=== PATIENT | male | born 1950 | race Caucasian/White ===

== ENCOUNTER 2016-10-14 08:35 | Outpatient (CLI) | payer OTHER ==
[~2016-10-14 08:35] MED LIST: ALBUT; BENADRYL ALLERG25 M1 PO; DULERA1 AR1 IH; MOTRIN; MOTRIN800 MG PO; PROVENTIL2.5 MG/3 M INH
== END 2016-10-14 22:00 | disposition home or self-care (01) ==
LOC: MLB 08:35
PROVIDERS: ATTEND Internal Medicine Geriatric Medicine
DX: Z00.00 Encounter for general adult medical examination without abnormal findings (principal)

== ENCOUNTER 2017-01-17 05:55 | Emergency (ER) | payer OTHER ==
[~2017-01-17] VITALS: Ht 162.6 cm; Wt 83.5 kg
[~2017-01-17 05:55] MED LIST changes: -ALBUT; -BENADRYL ALLERG25 M1 PO; -DULERA1 AR1 IH; +FORM1 IH; -MOTRIN; -MOTRIN800 MG PO; -PROVENTIL2.5 MG/3 M INH
[2017-01-17 06:01] VITALS: BP 123/53
--- NOTE | 2017-01-17 06:10 | NUR ---
PT TAKEN TO BED 4
--- NOTE | 2017-01-17 06:20 | NUR ---
Dr. Aleman evaluating patient at bedside.
[2017-01-17] MEDS ORDERED: predniSONE 20 MG TAB PO ONE (06:25)
[2017-01-17] MEDS ORDERED: ALBUTEROL SULFATE/IPRATROPIU 3 ML SOL IH ONE (06:25)
[2017-01-17] MEDS ORDERED: ALBUTEROL 0.083% 2.5 MG/3 ML NEBU INH ONE (06:25)
--- NOTE | 2017-01-17 06:32 | NUR ---
PT MOVED TO OVERFLOW
--- NOTE | 2017-01-17 06:38 | NUR ---
RT AT BEDSIDE ADMINISTERING BREATHING TREATMENT, PATIENT TOLERATED WELL.
[2017-01-17 07:03] VITALS: BP 123/53
--- NOTE | 2017-01-17 07:03 | NUR ---
Patient discharged with v/s stable. Written and verbal after care instructions given and explained. Patient alert, oriented and verbalized understanding of instructions. Ambulatory with steady gait. All questions addressed prior to discharge. ID band removed. Patient advised to follow up with PMD. Rx of ALBUTEROL, PREDNOSONE given. Patient educated on indication of medication including possible reaction and side effects. Opportunity to ask questions provided and answered.
== END 2017-01-17 07:03 | disposition home or self-care (01) ==
LOC: MED 05:55
DX: J45.901 Unspecified asthma with (acute) exacerbation (principal); J45.909 Unspecified asthma, uncomplicated; Z90.49 Acquired absence of other specified parts of digestive tract; Z79.899 Other long term (current) drug therapy
CPT/HCPCS: 94640; 99283; J7512; J7613; J7620

== ENCOUNTER 2017-10-27 06:01 | Emergency (ER) | payer OTHER ==
[~2017-10-27] VITALS: Ht 167.6 cm; Wt 87.2 kg
[2017-10-27 06:01] VITALS: BP 126/71
--- NOTE | 2017-10-27 06:10 | NUR ---
pt ambulated to bed #3.
--- NOTE | 2017-10-27 06:11 | NUR ---
PATIENT PRESENTS TO ED WITH allergies, runny nose, and dyspnea. Dr Pate at bedside evaluating Pt. PtDENIES N/V/D; SKIN IS PINK/WARM/DRY; AAOX4 WITH EVEN AND STEADY GAIT; LUNGS CLEAR BL; HR EVEN AND REGULAR; PT DENIES ANY FEVER, CP, OR COUGH AT THIS TIME; PATIENT STATES PAIN OF 0/10 AT THIS TIME; VSS; PATIENT POSITIONED FOR COMFORT; HOB ELEVATED; BEDRAILS UP X2; BED DOWN. ER MD MADE AWARE OF PT STATUS. CONTINUE TO MONITOR.
[2017-10-27 06:31] VITALS: BP 126/71
--- NOTE | 2017-10-27 06:31 | NUR ---
Patient discharged with v/s stable. Written and verbal after care instructions given and explained. Patient alert, oriented and verbalized understanding of instructions. Ambulatory with steady gait. All questions addressed prior to discharge. ID band removed. Patient advised to follow up with PMD. Rx of ZYRTEC, FLONASE, ALAWAY OPTH OINT given. Patient educated on indication of medication including possible reaction and side effects. Opportunity to ask questions provided and answered.
== END 2017-10-27 06:31 | disposition home or self-care (01) ==
LOC: MED 06:01
DX: J30.2 Other seasonal allergic rhinitis (principal); J45.909 Unspecified asthma, uncomplicated
CPT/HCPCS: 99283

== ENCOUNTER 2018-01-28 20:45 | Emergency (ER) | payer OTHER ==
[~2018-01-28] VITALS: Ht 167.6 cm; Wt 86.2 kg
[2018-01-28 20:47] VITALS: BP 111/75
[2018-01-28] MEDS: predniSONE 20 MG TAB PO ONE (22:25)
[2018-01-28 22:39] VITALS: BP 112/72
== END 2018-01-28 22:39 | disposition home or self-care (01) ==
LOC: MED 20:45
DX: J00 Acute nasopharyngitis [common cold] (principal); Z88.1 Allergy status to other antibiotic agents; Z90.49 Acquired absence of other specified parts of digestive tract
CPT/HCPCS: 99283; J7512

== ENCOUNTER 2019-02-23 13:18 | Emergency (ER) | payer OTHER ==
[~2019-02-23] VITALS: Ht 167.6 cm; Wt 85.7 kg
[2019-02-23 13:29] VITALS: BP 139/90
--- NOTE | 2019-02-23 14:03 | NUR ---
[place]. JOINT SEALER WAS BEDSIDE TO EXAMINE PT.
[2019-02-23] MEDS ORDERED: IPRATROPIUM 0.02% 0.5 MG/2.5 ML NEBU INH ONE (14:10)
[2019-02-23] MEDS ORDERED: ALBUTEROL 0.083% 2.5 MG/3 ML NEBU INH ONE (14:10)
[2019-02-23] MEDS ORDERED: predniSONE 20 MG TAB PO ONE (14:10)
--- NOTE | 2019-02-23 14:22 | NUR ---
MEDICATED PT WITH PREDNISONE PO. RT WAS BEDSIDE TO DO BREATHING TX.
--- NOTE | 2019-02-23 14:22 | NUR ---
Breathing treatment administered at bedside by respiratory therapist.
--- NOTE | 2019-02-23 14:34 | NUR ---
DR HUERTA AT BEDSIDE
[2019-02-23] MEDS ORDERED: ALBUTEROL SULFATE/IPRATROPIU 3 ML SOL IH ONE (15:05)
--- NOTE | 2019-02-23 15:40 | NUR ---
Patient discharged with v/s stable. Written and verbal after care instructions given and explained. Patient alert, oriented and verbalized understanding of instructions. Ambulatory with steady gait. All questions addressed prior to discharge. ID band removed. Patient advised to follow up with PMD. Rx of PREDNISONE, CALRITIN, ALBUTEROL, FLONASE given. Patient educated on indication of medication including possible reaction and side effects. Opportunity to ask questions provided and answered.
[2019-02-23 15:41] VITALS: BP 133/82
== END 2019-02-23 15:40 | disposition home or self-care (01) ==
LOC: MED 13:18
DX: J45.901 Unspecified asthma with (acute) exacerbation (principal); J30.9 Allergic rhinitis, unspecified; Z88.1 Allergy status to other antibiotic agents
CPT/HCPCS: 94640; 99284; J7512; J7613; J7620; J7644

== ENCOUNTER 2020-03-22 05:53 | Emergency (ER) | payer OTHER ==
[~2020-03-22] VITALS: Ht 167.6 cm; Wt 89.8 kg
[2020-03-22 06:00] VITALS: BP 134/68
--- NOTE | 2020-03-22 06:07 | NUR ---
PT AMBULATED TO ER BED 7 W/ STEADY GAIT.
--- NOTE | 2020-03-22 06:17 | NUR ---
70 Y/O MALE BIB SELF RECOMMENDED BY HIS PCP D/T "FELT LIKE MY HEAD WAS HIT BY A TREE AND A SUDDEN JOLT OF MY BODY". PT WAS A&O X4, CALM AND PLEASANT. PERRLA, BRISK 3MM, VERABLIZED HAVING "ACHING" PAIN AND DISCOMFORT 7/10 IN BACK OF THE NECK. PT WAS ABLE TO PERFORM FULL ROM OF THE NECK. DENIED HAVING ANY N/V/D. NO SENSITIVITY TO LIGHT. HAND [employer]ER WAS STRONG BILATERALLY. SECONDARY C/O WORSENING WHEEZING X 1 MONTH AGO. RESPIRATIONS EVEN AND UNLABORED. WHEEZING WAS NOTED ON INSPIRATION AND EXPIRATION THROUGHT THE LUNGS BILATERALLY A/P. NO C/O FEELING SOB AT THIS TIME. BED LOCKED AND PLACED IN LOWEST POSITION. MEDHX: ASTHMA ALLERGIES: PENICILLIN/AMOXICILLIN
--- NOTE | 2020-03-22 06:19 | NUR ---
ERMD AT BEDSIDE FOR MEDICAL EVALUATION.
[2020-03-22] MEDS ORDERED: ALBUTEROL SULFATE/IPRATROPIU 3 ML SOL IH ONE (06:25)
[2020-03-22] MEDS ORDERED: methylPREDNISolone SS 125 MG/2 ML VIAL IM ONE (06:25)
--- NOTE | 2020-03-22 06:41 | NUR ---
PT TAKEN BY X-RAY TECH VIA W/C FOR CT.
--- NOTE | 2020-03-22 06:45 | NUR ---
RT CALLED FOR BREATHING TX.
--- NOTE | 2020-03-22 06:57 | NUR ---
Respiratory Therapist at bedside for respiratory intervention.
--- NOTE | 2020-03-22 07:08 | NUR ---
ENDORSED PT STATUS TO TONY RN FOR CONTINUITY OF CARE.
[2020-03-22] MEDS ORDERED: ALBUTEROL 0.083% 2.5 MG/3 ML NEBU INH ONE (07:25)
--- NOTE | 2020-03-22 07:30 | NUR ---
RT AT BEDSIDE, PT CONNECTED TO [facility] ERP ARCHITECT
--- NOTE | 2020-03-22 08:06 | NUR ---
PT STATES THAT HE IS FEELING BETTER AND HIS CHEST IS NOT FEELING TIGHT. NO WHEEZING AUSCULTATED. VSS.
--- NOTE | 2020-03-22 08:30 | NUR ---
Dr. Davidson is reevaluating the patient at bedside.
[2020-03-22 08:40] VITALS: BP 127/65
--- NOTE | 2020-03-22 08:41 | NUR ---
Patient discharged with v/s stable. Written and verbal after care instructions given and explained. Patient alert, oriented and verbalized understanding of instructions. Ambulatory with steady gait. All questions addressed prior to discharge. ID band removed. Patient advised to follow up with PMD. Rx of azithromycin, albuterol, microelite compressor nebulizer, and prednisone given. Patient educated on indication of medication including possible reaction and side effects. Opportunity to ask questions provided and answered.
== END 2020-03-22 08:41 | disposition home or self-care (01) ==
LOC: MED 05:53
DX: J45.909 Unspecified asthma, uncomplicated (principal); R51.9 Headache, unspecified; R03.0 Elevated blood-pressure reading, without diagnosis of hypertension; Z88.1 Allergy status to other antibiotic agents; Z90.49 Acquired absence of other specified parts of digestive tract
CPT/HCPCS: 70450; 71045; 72125; 94640; 96372; 99285; J2930; J7613; Q0092

== ENCOUNTER 2020-09-18 06:04 | Emergency (ER) | payer OTHER ==
[~2020-09-18] VITALS: Ht 167.6 cm; Wt 81.6 kg
[2020-09-18 06:09] VITALS: BP 156/73
--- NOTE | 2020-09-18 06:09 | NUR ---
TO BED AMBULATORY
--- NOTE | 2020-09-18 06:15 | NUR ---
SEE PATIENT ASSESSMENT FOR MORE INFORMATION.
--- NOTE | 2020-09-18 06:15 | NUR ---
Dr. Aleman examining patient.
[2020-09-18] MEDS: KETOROLAC 60 MG/2 ML VIAL IM ONE (06:27)
[2020-09-18] MEDS ORDERED: IBUP-2213 PO (06:32)
[2020-09-18] MEDS ORDERED: ACET-8386 PO (06:32)
[2020-09-18 06:46] VITALS: BP 156/73
--- NOTE | 2020-09-18 06:46 | NUR ---
Patient discharged with v/s stable. Written and verbal after care instructions given and explained. Patient alert, oriented and verbalized understanding of instructions. Ambulatory with steady gait. All questions addressed prior to discharge. ID band removed. Patient advised to follow up with PMD. Rx of IBUPROFEN, NORCO given. Patient educated on indication of medication including possible reaction and side effects. Opportunity to ask questions provided and answered.
== END 2020-09-18 06:46 | disposition home or self-care (01) ==
LOC: MED 06:04
DX: M54.2 Cervicalgia (principal); J45.909 Unspecified asthma, uncomplicated; Z90.49 Acquired absence of other specified parts of digestive tract; Z88.0 Allergy status to penicillin
CPT/HCPCS: 96372; 99283; J1885

== ENCOUNTER 2021-01-15 06:00 | Emergency (ER) | payer OTHER ==
[~2021-01-15] VITALS: Ht 177.8 cm; Wt 81.6 kg
[2021-01-15 06:00] VITALS: BP 122/96
[~2021-01-15 06:00] MED LIST changes: +ACET-8386 PO; -FORM1 IH; +IBUP-2213 PO
--- NOTE | 2021-01-15 06:00 | NUR ---
TO BED AMBULATORY
[2021-01-15] MEDS ORDERED: ALBUTEROL HFA MDI 90 MCG/ACTUATION 8 GM INH ONE (06:15)
[2021-01-15] MEDS ORDERED: predniSONE 20 MG TAB PO ONE (06:15)
--- NOTE | 2021-01-15 06:15 | NUR ---
70 YO/M BIB SELF W C/O WHEEZING, SOB, AND RED WATERY EYES SINCE FRIDAY THAT WORSENED TODAY AT 0300. PATIENT DENIES PAIN OR CHEST PAIN. PATIENT O2 SATURATION 94%, BREATHING EVEN AND UNLABORED. WHEEZING AUSCULTATED THROUGHOUT LUNG RAO INSPIRATORY AND EXPIRATORY. PATIENT SPEAKING IN FULL SENTENCES. PATIENT REPORTS USING INHALOR LAST USE LAST NIGHT W MILD RELIEF. PATIENT SITTING IN BED LOCKED IN LOWEST POSITION. 74HR, 94% O2 SAT. NAD NOTED, WILL CONTINUE TO MONITOR. PMH:ASTHMA ALLERGIES: PENICILLINS, AMOXICILLIN, DUST, "LIQOUR YEAST"
--- NOTE | 2021-01-15 06:20 | NUR ---
BUS MATRON AT BEDSIDE FOR PATIENT TREATMENT.
[2021-01-15] MEDS ORDERED: ALBU0.0912 IH (06:26)
[2021-01-15] MEDS ORDERED: PRED20TA5 PO (06:26)
[2021-01-15] MEDS ORDERED: KETO5SOL OP (06:26)
--- NOTE | 2021-01-15 06:45 | NUR ---
PATIENT REPORTS RELIEF OF WHEEZING AND SOB S/P ALBUTEROL INH AND PREDNISONE MEDICATIONS. LUNG SOUNDS CLEAR THROUGHOUT, BREATHING EVEN AND UNLABORED, 96 O2 SATURATION ON ROOM AIR, 73HR.
[2021-01-15 06:55] VITALS: BP 122/96
--- NOTE | 2021-01-15 06:55 | NUR ---
Patient discharged with v/s stable. Written and verbal after care instructions given and explained. Patient alert, oriented and verbalized understanding of instructions. Ambulatory with steady gait. All questions addressed prior to discharge. ID band removed. Patient advised to follow up with PMD. Rx of ALBUTEROL SULFATE, KETOROLAC TROMETHAMINE, PREDNISONE given. Patient educated on indication of medication including possible reaction and side effects. Opportunity to ask questions provided and answered.
== END 2021-01-15 06:55 | disposition home or self-care (01) ==
LOC: MED 06:00
DX: J45.901 Unspecified asthma with (acute) exacerbation (principal); H10.13 Acute atopic conjunctivitis, bilateral; R03.0 Elevated blood-pressure reading, without diagnosis of hypertension; J45.909 Unspecified asthma, uncomplicated; Z88.0 Allergy status to penicillin; Z88.1 Allergy status to other antibiotic agents
CPT/HCPCS: 94664; 99283; J7512

== ENCOUNTER 2021-11-02 06:10 | Emergency (ER) | payer OTHER ==
[~2021-11-02] VITALS: Ht 167.6 cm; Wt 83.9 kg
[~2021-11-02 06:10] MED LIST changes: +ALBU0.0912 IH; +KETO5SOL OP; +PRED20TA5 PO
[2021-11-02 06:12] VITALS: BP 138/59
--- NOTE | 2021-11-02 06:19 | NUR ---
TO LOBBY RONAK SAHU
[2021-11-02] MEDS ORDERED: ONDANSETRON 4 MG/2 ML VIAL IVP ONE (07:05)
[2021-11-02] MEDS ORDERED: NACL 0.9% 500 ML IV ONE (07:05)
--- NOTE | 2021-11-02 07:36 | NUR ---
71 y/o male, c/o body pain, chills, suarez, subjective fever, loss of appetite for 2 days, s/s worsened today. skin is pink/warm/dry. a&o x4 with even and steady gait. lungs clear bl, heart rate even and regular. pt denies dysuria, hematuria, urinary frequency or retention, or anyone sick in the household with the same symptoms. pt denies any cp, sob, or cough at this time. pt states pain is 6/10 at this time. patient positioned for comfort. hob elevated. bed down. ermd made aware of pt. pmh: asthma allergy: penicillin, amoxicillin med: denies
--- NOTE | 2021-11-02 07:40 | NUR ---
Blood work, urine, RONNY and Flu specimens obtained, handed to CPT Rusty at bedside.
[2021-11-02 08:18] LABS: BASOPHILS # (AUTO) 0.1 K/uL (0.00-0.22); BASOPHILS % (AUTO) 1.1 % (0.0-2.0); EOSINOPHILS # (AUTO) 0.1 K/uL (0-0.4); EOSINOPHILS % (AUTO) 0.5 % (0.0-4.0); HEMATOCRIT 46.9 % (36-52); HEMOGLOBIN 15.3 g/dL (12.0-18.0); LYMPHOCYTES % (AUTO) 8.5 % (20.5-51.1); MEAN CORPUSCULAR HEMOGLOBIN 29 pg (27-31); MEAN CORPUSCULAR HGB CONC 33 g/dL (33-37); MEAN CORPUSCULAR VOLUME 87.9 fL (80-94); MONOCYTES # (AUTO) 1.1 K/uL (0.8-1.0); MONOCYTES % (AUTO) 9.3 % (1.7-9.3); NEUTROPHILS # (AUTO) 9.3 K/uL (1.8-7.7); NEUTROPHILS % (AUTO) 80.6 % (42.2-75.2); PLATELET COUNT (AUTO) 250 K/uL (140-450); RED BLOOD CELL COUNT(AUTO) 5.33 MIL/uL (4.20-6.10); RED CELL DISTRIBUTION WIDTH 14.5 % (11.6-13.7); WHITE BLOOD COUNT (AUTO) 11.6 K/uL (4.8-10.8)
[2021-11-02 08:36] LABS: APPEARANCE,URINE CLEAR (CLEAR); BILIRUBIN,URINE NEGATIVE (NEGATIVE); BLOOD, URINE TRACE-I (NEGATIVE); COLOR,URINE YELLOW (YELLOW); LEUKOCYTE ESTERASE ,URINE NEGATIVE (NEGATIVE); NITRITE, URINE NEGATIVE (NEGATIVE); PH,URINE 7.5 (5.0-9.0); UGLUCOSE NEGATIVE (NEGATIVE)
[2021-11-02 09:11] LABS: ALBUMIN 4.1 g/dL (3.4-5.0); ANION GAP 13.2 (8-16); ASPARTATE AMINOTRANSFERASE 24 U/L (15-37); CARBON DIOXIDE 25.6 mmol/L (21-32); CHLORIDE 98 mmol/L (98-107); CREATININE 1.2 mg/dL (0.6-1.3); GFR ARICAN-AMERICAN 77 mL/min (>90); GLUCOSE 110 mg/dL (74-106); POTASSIUM 3.8 mmol/L (3.5-5.1); SODIUM SERUM 133 mmol/L (136-145); TOTAL BILIRUBIN 0.7 mg/dL (0.0-1.0); UREA NITROGEN, BLOOD 10 mg/dL (7-18)
--- NOTE | 2021-11-02 09:51 | NUR ---
Oral Temperature is at 99.9 F. Cooling Measures Implemented.
[2021-11-02] MEDS ORDERED: NIRM1TAB PO (10:04)
--- NOTE | 2021-11-02 10:20 | NUR ---
Cooling measures worked 98.7 F Oral Temperature
[2021-11-02 10:35] VITALS: BP 124/73
--- NOTE | 2021-11-02 10:35 | NUR ---
Patient discharged with v/s stable. Written and verbal after care instructions given. Patient alert, oriented and verbalized understanding of instructions. Ambulatory with steady gait. All questions addressed prior to discharge. ID band removed. Patient advised to follow up with PMD. Rx of Paxlovid Co-Pack given. Opportunity to ask questions provided and answered.
--- NOTE | 2021-11-02 11:02 | NUR ---
The patient's care was reviewed and supervised by Cynthia Barros, RN, RN.
== END 2021-11-02 10:35 | disposition home or self-care (01) ==
LOC: MED 06:10
DX: U07.1 COVID-19 (principal); J45.909 Unspecified asthma, uncomplicated
CPT/HCPCS: 36415; 71045; 80053; 81003; 84484; 85025; 87426; 87804; 93005; 96361; 96374; 99285; J2405; J7030; Q0092

== ENCOUNTER 2022-02-12 06:10 | Emergency (ER) | payer OTHER ==
[~2022-02-12] VITALS: Ht 167.6 cm; Wt 83.9 kg
[~2022-02-12 06:10] MED LIST changes: +NIRM1TAB PO
[2022-02-12 06:29] VITALS: BP 116/71
[2022-02-12] MEDS ORDERED: predniSONE 20 MG TAB PO ONE (06:40)
[2022-02-12] MEDS ORDERED: ALBUTEROL 0.083% 2.5 MG/3 ML NEBU INH ONE (06:40)
--- NOTE | 2022-02-12 06:40 | NUR ---
RT CALLED TO BEDSIDE
--- NOTE | 2022-02-12 06:41 | NUR ---
PATIENT AMBULATED TO BED 8 WITH STEADY GAIT.
[2022-02-12 06:54] VITALS: BP 116/71
--- NOTE | 2022-02-12 06:55 | NUR ---
RT AT BEDSIDE
--- NOTE | 2022-02-12 06:59 | NUR ---
C/O Adult asthma x 1 week. Patient reported, had cough, congestion and wheezing on and off over a week, used IH , no relief. PMHx: Asthma
--- NOTE | 2022-02-12 07:03 | NUR ---
PATIENT MEDICATED PER ORDERS, TOLERATED WELL.
--- NOTE | 2022-02-12 07:35 | NUR ---
REPORT GIVEN TO DEB POZO. TRANSFER OF CARE.
--- NOTE | 2022-02-12 07:38 | NUR ---
Patient being evaluated by physician at bedside.
[2022-02-12] MEDS ORDERED: PRED20TA5 PO (07:46)
[2022-02-12] MEDS ORDERED: ALBU0.0912 INH (07:46)
[2022-02-12] MEDS ORDERED: PRON INH (07:46)
--- NOTE | 2022-02-12 07:46 | NUR ---
REPORT RECEIVED FROM VINEET SHANE. ASSUMED CARE AT THIS TIME
--- NOTE | 2022-02-12 07:46 | NUR ---
REPORT GIVEN TO ACOSTA ALVAREZ. TRANSFER OF CARE
--- NOTE | 2022-02-12 08:05 | NUR ---
Patient discharged with v/s stable. Written and verbal after care instructions FOR ASTHMA ATTACK given and explained. Patient alert, oriented and verbalized understanding of instructions. Ambulatory with steady gait. All questions addressed prior to discharge. ID band removed. Patient advised to follow up with PMD. Rx of DELTASONE AND ALBUTREROL SULDFATE(HFA MDI/ 0.083% NEB) given. . Opportunity to ask questions provided and answered.
--- NOTE | 2022-02-12 08:36 | NUR ---
The patient's care was reviewed and supervised by Jelly Woods RN.
== END 2022-02-12 08:05 | disposition home or self-care (01) ==
LOC: MED 06:10
DX: J45.901 Unspecified asthma with (acute) exacerbation (principal); Z79.899 Other long term (current) drug therapy; Z79.1 Long term (current) use of non-steroidal anti-inflammatories (NSAID); Z79.891 Long term (current) use of opiate analgesic; Z88.0 Allergy status to penicillin
CPT/HCPCS: 94640; 99285; J7512; J7613

== ENCOUNTER 2022-02-22 05:55 | Emergency (ER) | payer OTHER ==
[~2022-02-22] VITALS: Ht 167.6 cm; Wt 83.9 kg
[~2022-02-22 05:55] MED LIST changes: +ALBU0.0912 INH; +PRON INH
[2022-02-22 05:58] VITALS: BP 134/74
--- NOTE | 2022-02-22 06:05 | NUR ---
DR BARKER IN TRIAGE EXAMINING PT
[2022-02-22] MEDS ORDERED: PRED20TA5 PO (06:47)
[2022-02-22] MEDS ORDERED: ACET-10509 PO (06:47)
[2022-02-22] MEDS ORDERED: BENZ-300 PO (06:47)
[2022-02-22] MEDS ORDERED: BENZ100C6 PO (06:47)
--- NOTE | 2022-02-22 06:57 | NUR ---
Patient discharged with v/s stable. Written and verbal after care instructions given and explained. Patient alert, oriented and verbalized understanding of instructions. Ambulatory with steady gait. All questions addressed prior to discharge. ID band removed. Patient advised to follow up with PMD. Rx of TYLENOL, CEPACOL, AND BENZONATATE given. Patient educated on indication of medication including possible reaction and side effects. Opportunity to ask questions provided and answered.
== END 2022-02-22 06:57 | disposition home or self-care (01) ==
LOC: MED 05:55
DX: J06.9 Acute upper respiratory infection, unspecified (principal); J45.909 Unspecified asthma, uncomplicated; Z88.0 Allergy status to penicillin; Z88.1 Allergy status to other antibiotic agents
CPT/HCPCS: 99283

== ENCOUNTER 2022-11-22 05:55 | Emergency (ER) | payer OTHER ==
[~2022-11-22] VITALS: Ht 167.6 cm; Wt 81.6 kg
[~2022-11-22 05:55] MED LIST changes: +ACET-10509 PO; -ACET-8386 PO; +ACET-8905 PO; +BENZ-300 PO; +BENZ100C6 PO
[2022-11-22 06:04] VITALS: BP 115/70; PULSE 76; RESP 16; TEMP 97.3; O2SAT 98
--- NOTE | 2022-11-22 06:08 | NUR ---
TO LOBBY FOLLOWING TRIAGE
[2022-11-22] MEDS ORDERED: predniSONE 20 MG TAB PO ONE (07:05)
[2022-11-22] MEDS ORDERED: ALBUTEROL SULFATE/IPRATROPIU 3 ML SOL IH ONE (07:05)
--- NOTE | 2022-11-22 07:39 | NUR ---
pt medicated per MD orders
[2022-11-22 07:42] VITALS: PULSE 66; RESP 18; O2SAT 98
--- NOTE | 2022-11-22 07:48 | NUR ---
Respiratory Therapist at bedside for respiratory intervention. Patient tolerated well.
[2022-11-22] MEDS ORDERED: CETI10SG1 PO (08:24)
[2022-11-22] MEDS ORDERED: FLONAS NS (08:24)
[2022-11-22] MEDS ORDERED: OLOP5DRO19 OP (08:24)
[2022-11-22] MEDS ORDERED: PRED20TA5 PO (08:24)
[2022-11-22] MEDS ORDERED: PRON INH (08:24)
[2022-11-22] MEDS ORDERED: ALBU0.0912 IH (08:24)
[2022-11-22 08:43] VITALS: BP 117/72; PULSE 67; RESP 20; TEMP 97.4; O2SAT 98
--- NOTE | 2022-11-22 08:43 | NUR ---
Patient discharged with v/s stable. Written and verbal after care instructions given and explained. Patient alert, oriented and verbalized understanding of instructions. Ambulatory with steady gait. All questions addressed prior to discharge. ID band removed. Patient advised to follow up with PMD. Rx of proventil,zyrtec,flonase nasal,olopatadine HCI,prednisone,albuterol sulfate given. Patient educated on indication of medication including possible reaction and side effects. Opportunity to ask questions provided and answered.
== END 2022-11-22 08:43 | disposition home or self-care (01) ==
LOC: MED 05:55
DX: J45.901 Unspecified asthma with (acute) exacerbation (principal); J30.9 Allergic rhinitis, unspecified; Z88.0 Allergy status to penicillin; Z88.1 Allergy status to other antibiotic agents; Z79.899 Other long term (current) drug therapy
CPT/HCPCS: 94640; 99283; J7512

== ENCOUNTER 2023-01-29 06:00 | Emergency (ER) | payer OTHER ==
[~2023-01-29] VITALS: Ht 167.6 cm; Wt 90.7 kg
[~2023-01-29 06:00] MED LIST changes: +CETI10SG1 PO; +FLONAS NS; +OLOP5DRO19 OP
[2023-01-29 06:19] VITALS: BP 120/77; PULSE 64; RESP 20; TEMP 96.4; O2SAT 95
[2023-01-29] MEDS ORDERED: predniSONE 20 MG TAB PO ONE (06:35)
[2023-01-29] MEDS ORDERED: ALBUTEROL SULFATE/IPRATROPIU 3 ML SOL IH ONE ×2 (06:35→07:35)
[2023-01-29 06:47] VITALS: PULSE 61; RESP 16; O2SAT 98
[2023-01-29 07:48] VITALS: PULSE 76; RESP 13; O2SAT 96
[2023-01-29] MEDS ORDERED: PRED20TA5 PO (08:10)
[2023-01-29] MEDS ORDERED: FLONAS NS (08:10)
== END 2023-01-29 08:15 | disposition home or self-care (01) ==
LOC: MED 06:00
DX: J45.901 Unspecified asthma with (acute) exacerbation (principal); Z79.899 Other long term (current) drug therapy; Z79.1 Long term (current) use of non-steroidal anti-inflammatories (NSAID); Z88.0 Allergy status to penicillin
CPT/HCPCS: 94640; 99284; J7512

== ENCOUNTER 2023-02-12 08:48 | Emergency (ER) | payer OTHER ==
[~2023-02-12] VITALS: Ht 167.6 cm; Wt 90.7 kg
[2023-02-12 08:49] VITALS: BP 123/90; PULSE 122; RESP 15; TEMP 100.5; O2SAT 94
[2023-02-12] MEDS ORDERED: ONDANSETRON 4 MG/2 ML VIAL IVP ONE (09:25)
[2023-02-12] MEDS ORDERED: KETOROLAC 30 MG/ML VIAL IVP ONE (09:25)
[2023-02-12 09:41] VITALS: O2SAT 94
[2023-02-12 10:01] LABS: BASOPHILS # (AUTO) 0.1 K/uL (0.00-0.22); BASOPHILS % (AUTO) 1.1 % (0.0-2.0); EOSINOPHILS # (AUTO) 0.3 K/uL (0-0.4); EOSINOPHILS % (AUTO) 2.2 % (0.0-4.0); HEMATOCRIT 46.8 % (36-52); HEMOGLOBIN 15.5 g/dL (12.0-18.0); LYMPHOCYTES # (AUTO) 1.1 K/uL (2.0-11.5); LYMPHOCYTES % (AUTO) 9.8 % (20.5-51.1); MEAN CORPUSCULAR HEMOGLOBIN 29 pg (27-31); MEAN CORPUSCULAR HGB CONC 33 g/dL (33-37); MEAN CORPUSCULAR VOLUME 87.6 fL (80-94); MONOCYTES # (AUTO) 0.8 K/uL (0.8-1.0); MONOCYTES % (AUTO) 7.1 % (1.7-9.3); NEUTROPHILS # (AUTO) 9.3 K/uL (1.8-7.7); NEUTROPHILS % (AUTO) 79.8 % (42.2-75.2); PLATELET COUNT (AUTO) 248 K/uL (140-450); RED BLOOD CELL COUNT(AUTO) 5.35 MIL/uL (4.20-6.10); RED CELL DISTRIBUTION WIDTH 14.8 % (11.6-13.7); WHITE BLOOD COUNT (AUTO) 11.7 K/uL (4.8-10.8)
[2023-02-12 10:20] LABS: ALANINE AMINOTRANSFERASE 28 U/L (12-78); ALBUMIN 3.8 g/dL (3.4-5.0); ALKALINE PHOSPHATASE 87 U/L (50-136); ANION GAP 9.9 (8-16); ASPARTATE AMINOTRANSFERASE 22 U/L (15-37); CALCIUM 9.3 mg/dL (8.5-10.1); CHLORIDE 95 mmol/L (98-107); GLUCOSE 121 mg/dL (74-106); POTASSIUM 3.9 mmol/L (3.5-5.1); SODIUM SERUM 127 mmol/L (136-145); TOTAL BILIRUBIN 0.6 mg/dL (0.0-1.0); TOTAL PROTEIN, SERUM 7.9 g/dL (6.4-8.2); UREA NITROGEN, BLOOD 10 mg/dL (7-18)
[2023-02-12 10:30] LABS: FLU A ANTIGEN negative (NEGATIVE); FLU B ANTIGEN NEGATIVE (NEGATIVE)
[2023-02-12] MEDS ORDERED: ACET-10509 PO (11:06)
[2023-02-12] MEDS ORDERED: ONDA-188 PO (11:06)
[2023-02-12 11:28] VITALS: BP 123/75; PULSE 113; RESP 18; TEMP 97.9; O2SAT 96
== END 2023-02-12 11:28 | disposition home or self-care (01) ==
LOC: MED 08:48
DX: J06.9 Acute upper respiratory infection, unspecified (principal); Z20.822 Contact with and (suspected) exposure to COVID-19; R11.2 Nausea with vomiting, unspecified; R19.7 Diarrhea, unspecified; E87.1 Hypo-osmolality and hyponatremia; Z88.0 Allergy status to penicillin; Z79.899 Other long term (current) drug therapy; Z88.1 Allergy status to other antibiotic agents
CPT/HCPCS: 36415; 71045; 80053; 83880; 84484; 85025; 87426; 87804; 93005; 96374; 96375; 99285; J1885; J2405

== ENCOUNTER 2023-05-21 05:57 | Emergency (ER) | payer OTHER ==
[~2023-05-21] VITALS: Ht 167.6 cm; Wt 81.6 kg
[~2023-05-21 05:57] MED LIST changes: +ONDA-188 PO
[2023-05-21 06:04] VITALS: BP 106/60; PULSE 89; RESP 20; TEMP 98; O2SAT 98
[2023-05-21] MEDS ORDERED: ACETAMINOPHEN EXTRA STRENGTH 500 MG TAB PO ONE (07:00)
[2023-05-21] MEDS ORDERED: IBUPROFEN 600 MG TAB PO ONE (07:00)
[2023-05-21] MEDS ORDERED: ACETAMINOPHEN EXTRA STRENGTH 500 MG TAB ONE (08:19)
[2023-05-21] MEDS ORDERED: IBUPROFEN 600 MG TAB ONE (08:19)
[2023-05-21] MEDS ORDERED: ACET-10509 PO (08:46)
[2023-05-21] MEDS ORDERED: DICL20GE TP (08:46)
[2023-05-21 09:00] VITALS: BP 106/60; PULSE 89; RESP 20; TEMP 98; O2SAT 98
== END 2023-05-21 09:00 | disposition home or self-care (01) ==
LOC: MED 05:57
DX: G89.29 Other chronic pain (principal); M79.671 Pain in right foot; J45.909 Unspecified asthma, uncomplicated; Z79.899 Other long term (current) drug therapy; Z79.1 Long term (current) use of non-steroidal anti-inflammatories (NSAID); Z88.0 Allergy status to penicillin
CPT/HCPCS: 73630; 99283

== ENCOUNTER 2023-07-07 13:25 | Outpatient (CLI) | payer OTHER ==
[~2023-07-07 13:25] MED LIST changes: +DICL20GE TP
[2023-07-07 14:22] LABS: BASOPHILS # (AUTO) 0.1 K/uL (0.00-0.22); BASOPHILS % (AUTO) 1.4 % (0.0-2.0); EOSINOPHILS # (AUTO) 0.6 K/uL (0-0.4); EOSINOPHILS % (AUTO) 5.7 % (0.0-4.0); HEMATOCRIT 42.6 % (36-52); HEMOGLOBIN 14.3 g/dL (12.0-18.0); LYMPHOCYTES # (AUTO) 2.7 K/uL (2.0-11.5); LYMPHOCYTES % (AUTO) 26.6 % (20.5-51.1); MEAN CORPUSCULAR HEMOGLOBIN 30 pg (27-31); MEAN CORPUSCULAR HGB CONC 34 g/dL (33-37); MEAN CORPUSCULAR VOLUME 87.6 fL (80-94); MONOCYTES # (AUTO) 0.8 K/uL (0.8-1.0); MONOCYTES % (AUTO) 7.9 % (1.7-9.3); NEUTROPHILS # (AUTO) 5.9 K/uL (1.8-7.7); NEUTROPHILS % (AUTO) 58.4 % (42.2-75.2); PLATELET COUNT (AUTO) 280 K/uL (140-450); RED BLOOD CELL COUNT(AUTO) 4.87 MIL/uL (4.20-6.10); RED CELL DISTRIBUTION WIDTH 14.4 % (11.6-13.7)
[2023-07-07 15:07] LABS: ALANINE AMINOTRANSFERASE 26 U/L (12-78); ALBUMIN 3.4 g/dL (3.4-5.0); ALKALINE PHOSPHATASE 104 U/L (50-136); ANION GAP 8.8 (8-16); ASPARTATE AMINOTRANSFERASE 19 U/L (15-37); CALCIUM 8.7 mg/dL (8.5-10.1); CARBON DIOXIDE 27.4 mmol/L (21-32); CHLORIDE 103 mmol/L (98-107); CHOL/HDL RATIO 4.1 (1-4.5); CHOLESTEROL 164 mg/dL (<200); GLUCOSE 76 mg/dL (74-106); HDL CHOLESTEROL 40 mg/dL (40-60); LDL (CALC) 95 mg/dL (60-100); POTASSIUM 4.2 mmol/L (3.5-5.1); SODIUM SERUM 135 mmol/L (136-145); THYROID STIMULATING HORMONE 2.63 uIU/mL (0.34-3.74); TOTAL BILIRUBIN 0.3 mg/dL (0.0-1.0); TOTAL PROTEIN, SERUM 8.4 g/dL (6.4-8.2); TRIGLYCERIDES 145 mg/dL (30-150); UREA NITROGEN, BLOOD 12 mg/dL (7-18)
[2023-07-08 08:08] LABS: T4 FREE (DIRECT) 0.85 ng/dL (0.82-1.77)
== END 2023-07-07 20:12 | disposition home or self-care (01) ==
LOC: MLB 13:25
DX: Z13.1 Encounter for screening for diabetes mellitus (principal); Z13.220 Encounter for screening for lipoid disorders; Z13.9 Encounter for screening, unspecified; E55.9 Vitamin D deficiency, unspecified
CPT/HCPCS: 36415; 80053; 82306; 83036; 84439; 84443; 85025

== ENCOUNTER 2023-10-01 06:00 | Emergency (ER) | payer OTHER ==
[~2023-10-01] VITALS: Ht 167.6 cm; Wt 87.1 kg
[2023-10-01 06:15] VITALS: BP 106/66; PULSE 78; RESP 20; TEMP 97.7; O2SAT 98
[2023-10-01] MEDS ORDERED: ALBUTEROL 0.083% 2.5 MG/3 ML NEBU INH ONE (06:40)
[2023-10-01] MEDS ORDERED: ALBUTEROL SULFATE/IPRATROPIU 3 ML SOL IH ONE (06:40)
[2023-10-01 06:49] VITALS: O2SAT 97
[2023-10-01] MEDS: predniSONE 20 MG TAB PO ONE (06:50)
[2023-10-01] MEDS: KETOROLAC 60 MG/2 ML VIAL IM ONE (06:52)
[2023-10-01 06:55] VITALS: BP 123/79
[2023-10-01] MEDS ORDERED: PRED20TA5 PO (07:06)
[2023-10-01 07:08] VITALS: PULSE 64; RESP 14; O2SAT 96
== END 2023-10-01 07:41 | disposition home or self-care (01) ==
LOC: MED 06:00
DX: M79.605 Pain in left leg (principal); M54.2 Cervicalgia; J45.901 Unspecified asthma with (acute) exacerbation; M54.6 Pain in thoracic spine; M25.562 Pain in left knee; Z90.49 Acquired absence of other specified parts of digestive tract; Z79.899 Other long term (current) drug therapy; Z88.0 Allergy status to penicillin
CPT/HCPCS: 94640; 96372; 99283; J1885; J7512; J7613

== ENCOUNTER 2023-11-14 06:00 | Emergency (ER) | payer OTHER ==
[~2023-11-14] VITALS: Ht 167.6 cm; Wt 81.6 kg
[2023-11-14 06:11] VITALS: BP 136/73; PULSE 66; RESP 16; TEMP 96.2; O2SAT 97
[2023-11-14] MEDS: predniSONE 20 MG TAB PO ONE (06:37)
[2023-11-14 06:40] VITALS: PULSE 62; RESP 20; O2SAT 96
[2023-11-14] MEDS: ALBUTEROL SULFATE/IPRATROPIU 3 ML SOL IH ONE ×2 (06:40)
[2023-11-14 06:56] VITALS: BP 136/73; PULSE 62; RESP 20; TEMP 96.2; O2SAT 96
[2023-11-14] MEDS ORDERED: FLUCONAZOLE 100 MG TAB ONE (07:11)
== END 2023-11-14 07:02 | disposition home or self-care (01) ==
LOC: MED 06:00
DX: J45.901 Unspecified asthma with (acute) exacerbation (principal); Z79.899 Other long term (current) drug therapy; Z88.0 Allergy status to penicillin
CPT/HCPCS: 94640; 99283; J7512

== ENCOUNTER 2024-02-13 06:01 | Emergency (ER) | payer OTHER ==
[~2024-02-13] VITALS: Ht 167.6 cm; Wt 94.3 kg
[~2024-02-13 06:01] MED LIST changes: -ACET-10509 PO; +ACET500T99 PO
[2024-02-13 06:08] VITALS: BP 134/71; PULSE 73; RESP 20; TEMP 97.2; O2SAT 96
[2024-02-13] MEDS: predniSONE 20 MG TAB PO ONE (06:41)
[2024-02-13 07:02] VITALS: BP 119/81; PULSE 78; RESP 17; TEMP 97.9; O2SAT 98
== END 2024-02-13 07:02 | disposition home or self-care (01) ==
LOC: MED 06:01
DX: H10.9 Unspecified conjunctivitis (principal); J30.9 Allergic rhinitis, unspecified; Z79.899 Other long term (current) drug therapy; Z88.0 Allergy status to penicillin
CPT/HCPCS: 99283; J7512